=== PATIENT | male | born 1970 | race African-American/Black ===

== ENCOUNTER 2021-05-17 05:11 | Emergency (ER) | payer OTHER, SELFPAY | END 2021-05-17 05:49 | disposition home or self-care (01) | LOC: ERS 05:11 | DX: F20.9 Schizophrenia, unspecified (principal); F15.10 Other stimulant abuse, uncomplicated; I10 Essential (primary) hypertension; F17.210 Nicotine dependence, cigarettes, uncomplicated | CPT/HCPCS: 99281 ==